=== PATIENT | female | born 1980 | race Caucasian/White ===

== ENCOUNTER 2022-04-03 04:32 | Day surgery (SDC) | payer OTHER ==
[2022-04-02 11:07] VITALS: BMI 27.2
[2022-04-03] MEDS ORDERED: MIDAZOLAM HCL 2 MG/2 ML SINGLE DOSE VIAL ONE (14:25)
[2022-04-03] MEDS ORDERED: ACETAMINOPHEN 1000 MG/100 ML BAG IVPB ONE (14:51)
[2022-04-03] MEDS ORDERED: ceFAZolin SODIUM 1 GM VIAL IVPB ONE (14:55)
[2022-04-03] MEDS ORDERED: DEXTROSE 5%-0.45% SALINE 1,000 ML IV SCH (15:00)
[2022-04-03] MEDS ORDERED: IBUPROFEN 800 MG/8 ML IJ IVPB SCH (15:00)
[2022-04-03] MEDS ORDERED: LIDOCAINE HCL 2% JELLY 10 ML CARTRIDGE ONE ×2 (15:02→15:04)
[2022-04-03] MEDS ORDERED: LIDOCAINE HCL 2% JELLY 10 ML CARTRIDGE TP ONE (15:08)
[2022-04-03] MEDS ORDERED: ACETAMINOPHEN INJECTION 100 ML IVPB ONE (15:21)
[2022-04-03] MEDS ORDERED: oxyCODONE HCL 5 MG TABLET PO PRN (17:34)
[2022-04-03] MEDS ORDERED: ONDANSETRON 4 MG/2 ML VIAL IVPUSH PRN (17:34)
[2022-04-03] MEDS ORDERED: LACTATED RINGERS SOLUTION 1,000 ML IV SCH (17:45)
[2022-04-03 17:49] VITALS: BP 109/75; PULSE 68; TEMP 98.2
== END 2022-04-03 17:40 | disposition home or self-care (01) ==
LOC: JASU-SURG 04:32
PROVIDERS: ATTEND Urology
PROC: 0TVC8ZZ Restriction of Bladder Neck, Via Natural or Artificial Opening Endoscopic (ICD-10-PCS; principal; 2022-04-03 14:30)
PROC: 0T7B8ZZ Dilation of Bladder, Via Natural or Artificial Opening Endoscopic (ICD-10-PCS; 2022-04-03 14:30)
DX: N39.3 Stress incontinence (female) (male) (principal); N30.10 Interstitial cystitis (chronic) without hematuria; N36.42 Intrinsic sphincter deficiency (ISD)
CPT/HCPCS: 51715; 52260; L8606; 81025; 94760

== ENCOUNTER 2022-11-03 09:55 | Emergency (ER) | payer OTHER ==
[2022-11-03 10:01] VITALS: BP 138/90; PULSE 90; RESP 20; TEMP 98.9; BMI 31.3
[2022-11-03] MEDS ORDERED: ACETAMINOPHEN 325 MG TABLET (FP) PO ONE (10:41)
[2022-11-03] MEDS ORDERED: ACETAMINOPHEN 325 MG TABLET (FP) ONE (10:51)
[2022-11-03] MEDS ORDERED: KETOROLAC TROMETHAMINE 30 MG/1 ML VIAL IM ONE (13:23)
[2022-11-03] MEDS ORDERED: KETOROLAC TROMETHAMINE 30 MG/1 ML VIAL ONE (13:33)
== END 2022-11-03 13:42 | disposition home or self-care (01) ==
LOC: JERFT 09:55 → JER 09:55 → JERFT 13:42
PROC: 3E023GC Introduction of Other Therapeutic Substance into Muscle, Percutaneous Approach (ICD-10-PCS; principal; 2022-11-03)
DX: R51.9 Headache, unspecified (principal)
CPT/HCPCS: 70450-TC; 99284-25

== ENCOUNTER 2024-05-08 05:05 | Day surgery (SDC) | payer OTHER ==
[2024-05-04 16:34] VITALS: BMI 24.4
[2024-05-08] MEDS ORDERED: LIDOCAINE HCL/PF 2% SDV 5ML VIAL ONE (07:25)
[2024-05-08] MEDS ORDERED: PROPOFOL 20 ML ONE (07:25)
[2024-05-08] MEDS ORDERED: MIDAZOLAM HCL 2 MG/2 ML SINGLE DOSE VIAL ONE (07:26)
[2024-05-08] MEDS ORDERED: DEXTROSE 5%-0.45% SALINE 1,000 ML IV SCH (07:30)
[2024-05-08] MEDS ORDERED: ceFAZolin SODIUM 1 GM VIAL ONE (07:46)
[2024-05-08] MEDS ORDERED: DEXAMETHASONE SOD PHOSPHATE 4 MG/1 ML VIAL ONE (07:46)
[2024-05-08] MEDS: ceFAZolin SODIUM 1 GM VIAL IVPB ONE (07:48)
[2024-05-08] MEDS ORDERED: ONDANSETRON 4 MG/2 ML VIAL ONE (07:57)
[2024-05-08] MEDS ORDERED: KETOROLAC TROMETHAMINE 30 MG/1 ML VIAL ONE (07:57)
[2024-05-08] MEDS ORDERED: PROMETHAZINE HCL 25 MG/1 ML VIAL IVPB PRN (08:08)
[2024-05-08] MEDS ORDERED: ONDANSETRON 4 MG/2 ML VIAL IVPUSH PRN (08:08)
[2024-05-08] MEDS ORDERED: oxyCODONE HCL 5 MG TABLET PO PRN ×2 (08:08)
[2024-05-08] MEDS ORDERED: ACETAMINOPHEN INJECTION 100 ML IVPB ONE (09:02)
[2024-05-08] MEDS: ACETAMINOPHEN 1000 MG/100 ML BAG IVPB ONE (09:03)
[2024-05-08] MEDS: LACTATED RINGERS SOLUTION 1,000 ML IV SCH (10:10)
[2024-05-08 10:14] VITALS: TEMP 97.8
[2024-05-08 14:16] VITALS: BP 125/75; PULSE 59; RESP 20
== END 2024-05-08 14:56 | disposition home or self-care (01) ==
LOC: JASU-SURG 05:05
PROVIDERS: ATTEND Urology
PROC: 0TSD0ZZ Reposition Urethra, Open Approach (ICD-10-PCS; principal; 2024-05-08 07:30)
DX: N39.3 Stress incontinence (female) (male) (principal)
CPT/HCPCS: 57288; C1771; 81025; 94760; J0131